=== PATIENT | female | born 1960 | race Caucasian/White ===

== ENCOUNTER 2020-07-17 18:30 | Inpatient (IN) | payer OTHER, SELFPAY ==
[2020-07-17 19:40] VITALS: BP 140/68; PULSE 70; RESP 16; TEMP 36.7; O2SAT 99; BMI 31.5
--- NOTE | 2020-07-17 20:02 | PC.NURSE ---
ophthalmic medical technologist at bedside obtaining EKG. PA at bedside with emr implementation specialist for primary exam.
--- NOTE | 2020-07-17 20:22 | ECG_ITS ---
Test Reason : SOB Blood Pressure : / mmHG Vent. Rate : 074 BPM Atrial Rate : 074 BPM P-R Int : 154 ms QRS Dur : 084 ms QT Int : 438 ms P-R-T Axes : 060 -31 015 degrees QTc Int : 486 ms Normal sinus rhythm Left axis deviation Nonspecific T wave abnormality Abnormal ECG No previous ECGs available Referred By: Antony Sellers Electronically Signed By:ARACELI MICHELE MD
[2020-07-17 20:30] VITALS: BP 130/73; PULSE 63
[2020-07-17 20:31] VITALS: BP 140/68; PULSE 61
[2020-07-17 20:33] VITALS: BP 156/80; PULSE 71
--- NOTE | 2020-07-17 20:48 | PC.NURSE ---
IV established, labs obtained and sent. Orthos completed, pt remained asymptomatic throughout. Pt ambulating to the bathroom with a juan/steady gait. Pt requiring no assistance with ambulation. Awaiting lab results, continue to monitor.
[2020-07-17 20:54] LABS: MANUAL DIFF FLAG NO
[2020-07-17 20:57] LABS: Basophils Absolute Auto 0.1 X10*3/uL (0.0-0.2); Basophils Percent Auto 0.6 % (0-2); Eosinophils Absolute Auto 0.2 X10*3/uL (0.0-0.4); Eosinophils Percent Auto 1.9 % (0-4); Hematocrit 45.9 % (37-47); Hemoglobin 14.3 g/dl (12.0-16.0); Imm Gran Abs Auto 0.04 X10*3/uL (0.00-0.03); Imm Gran Pct Auto 0.4 % (0.0-0.4); Lymphocytes Absolute Auto 1.8 X10*3/uL (1.2-4.9); Lymphocytes Percent Auto 19.4 % (20-40); Mean Corpuscular HGB Conc 31.2 g/dl (31.0-35.0); Mean Corpuscular Volume 86.6 fL (80-98); Mean Platelet Volume 9.9 fL (9.4-12.3); Monocytes Absolute Auto 0.6 X10*3/uL (0.1-1.2); Monocytes Percent Auto 6.6 % (2-11); Neutrophils Absolute Auto 6.7 X10*3/uL (2.0-8.3); Neutrophils Percent Auto 71.1 % (45-73); Platelet Count 321 X10*3/uL (160-400); Red Cell Distribution Width 13.4 % (11.0-16.0); White Blood Count 9.4 X10*3/uL (4.8-10.8)
[2020-07-17 21:04] LABS: INTERNATIONAL NORM RATIO 0.9 (0.9-1.1)
[2020-07-17 21:07] LABS: Partial Thromboplastin Time 36.1 SEC (24.1-38.0)
[2020-07-17 21:23] LABS: Alanine Aminotransferase 16 U/L (0-31); Albumin Level 4.3 g/dL (3.5-5.0); Alkaline Phosphatase 107 U/L (39-117); Anion Gap 12 (12-20); Aspartate Amino Transferase 23 U/L (5-31); Bilirubin Total 0.3 mg/dL (0.0-1.0); Blood Urea Nitrogen 12 mg/dL (9-16); Calcium 9.2 mg/dL (8.4-10.2); Carbon Dioxide 29 mmol/L (22-29); Chloride 104 mmol/L (96-108); Creatinine Clr Calc Pharmacy 73.3; Estimated Glomerular Filt Rate > 60; Glucose Random 156 mg/dL (60-115); Potassium 4.2 mmol/l (3.3-5.1); Sodium 141 mmol/L (135-145)
[2020-07-17 21:28] LABS: B Type Natriuretic Peptide 37 pg/mL (<100); Troponin-I High Sensitivity < 3.5 ng/L (<3.5-17.0)
[2020-07-17 22:19] VITALS: BP 109/61; PULSE 67; RESP 16; O2SAT 96
[2020-07-17 22:42] LABS: D Dimer 214 NG/ML
--- NOTE | 2020-07-17 22:54 | XR_ITS ---
EXAMINATION: XR CHEST CLINICAL INFORMATION: Shortness of breath. COMPARISON: None TECHNIQUE: Frontal portable view of the chest was obtained. 10:44 PM FINDINGS: No significant abnormality is noted involving the heart, lungs, mediastinum, bony thorax or soft tissues. XR/XR chest 1V IMPRESSION: Unremarkable examination.
--- NOTE | 2020-07-17 23:05 | PC.NURSE ---
Awaiting cardiac cath tech to complete Med Rec.
--- NOTE | 2020-07-17 23:50 | PC.NURSE ---
Med Rec completed at bedside with payloader machine operator.
[2020-07-18] VITALS (15 sets, daily range): BP systolic 90–136; BP diastolic 55–79; PULSE 56–70; RESP 14–19; TEMP 36.1–36.6; O2SAT 97–99
--- NOTE | 2020-07-18 00:39 | P.HPHOSP_ITS ---
History of Present Illness Date of Service: 07/17/20 Chief Complaint: near syncope patient is Maori-speaking, history is obtained with the help of field underwriter. this is a 52-year-old female with past medical history of hypertension, coronary artery disease status post stent in 2014 who presents to the hospital with complaints of near syncope. patient reports that she was driving when all of a sudden she started feeling like she is about to pass out. 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 She reports no loss of consciousness, she denies history of panic attacks although she reports history of anxiety, she denies palpitations, she denies any change in vision, no headache, she had multiple nausea with no vomiting, no previous similar episode. she reports that prior to leaving the house, she had neck stiffness which she attributed to muscle issues, she took a hot bath, took an Advil, and felt better And therefore left the house to deliver her [employer] packages. she reports weakness all over the body, with no specific numbness tingling or specific limb weakness anywhere On arrival to the ED hemodynamically stable with no significant abnormal vitals labs unremarkable with a negative high sensitivity troponin EKG shows ST T-wave changes suggestive of old infarct but otherwise no acute changes chest x-ray neck past medical history: Hypertension, coronary artery disease status post AL and stent placement in 2015 surgical history: Denies Family history: Significant for cancer in both mom and dad Social history: Comes from home, lives with her family, denies tobacco alcohol or illicit drugs Review of Systems Review of Systems: Yes all other systems are reviewed and are negative [facility] Medical History Arthritis Hypertension Myocardial infarction Social History Alcohol intake: never Smoking Status: Never smoker Use of substances other than those prescribed or required for medical reasons: No Advance Directives: No Advance Directives Information Provided: Yes Meds Allergies Allergy/AdvReac Type Severity Reaction Status Date / Time No Known Allergies Allergy Verified 07/17/20 20:22 Home Medications Medication Instructions Recorded Confirmed Type amlodipine 5 mg PO DAILY 07/17/20 07/17/20 History aspirin 81 mg PO DAILY 07/17/20 07/17/20 History atorvastatin 10 mg PO DAILY 07/17/20 07/17/20 History carvedilol 25 mg PO BID 07/17/20 07/17/20 History lisinopril 10 mg PO BID 07/17/20 07/17/20 History Physical Exam Vital Signs and Narrative: Vital Signs: Last Vital Signs Temp 98.1 F 07/17/20 19:40 Pulse 67 07/17/20 22:19 Resp 16 07/17/20 22:19 BP 109/61 07/17/20 22:19 Pulse Ox 96 07/17/20 22:19 Body Mass Index 31.5 Const: General: cooperative and no acute distress Orientation/consciousness : patient oriented x3 Eyes: General: appearance normal, both eyes and all related structures Pupils: Equal, round and reactive pupils present Resp: Effort & Inspection: normal respiratory effort and able to speak in complete sentences Auscultation: clear to auscultation bilaterally Cardio: Rate: regular rate Rhythm: regular rhythm GI: Palpation (GI): Soft to palpation Auscultation: normal bowel sounds Skin: General skin exam: no rashes or lesions noted Neuro: Other: strength 5/5 in all extremities, cranial nerves 2-12 within normal. No focal deficits General: patient oriented x3 Cranial nerves: Yes Equal, round and reactive pupils present Cognition (Neuro): normal cognition Extrem: General: Yes normal to inspection and Yes no pedal edema Results Labs CBC and Chem 7: 07/17/20 20:46 07/17/20 20:46 Labs: Laboratory Results - last 24 hr 07/17/20 07/17/20 07/17/20 20:46 20:46 20:46 MCV 86.6 MCH 27.0 MCHC 31.2 RDW 13.4 Plt Count 321 MPV 9.9 Immature Gran % (Auto) 0.4 Neut % (Auto) 71.1 Lymph % (Auto) 19.4 L [place] % (Auto) 6.6 Eos % (Auto) 1.9 Baso % (Auto) 0.6 Lymph # (Auto) 1.8 [place] # (Auto) 0.6 Eos # (Auto) 0.2 Baso # (Auto) 0.1 Abs Immat Gran (auto) 0.04 H Absolute Neuts (auto) 6.7 Absolute Nucleated RBC 0.000 Nucleated RBC % (auto) 0.0 PT 11.0 INR 0.9 APTT 36.1 D-Dimer 214 Anion Gap Estim Creat Clear Calc Estimated GFR Random Glucose Calcium Total Bilirubin AST ALT Alkaline Phosphatase Troponin I High Sens < 3.5 B-Natriuretic Peptide 37 Total Protein Albumin 07/17/20 20:46 MCV MCH MCHC RDW Plt Count MPV Immature Gran % (Auto) Neut % (Auto) Lymph % (Auto) [place] % (Auto) Eos % (Auto) Baso % (Auto) Lymph # (Auto) [place] # (Auto) Eos # (Auto) Baso # (Auto) Abs Immat Gran (auto) Absolute Neuts (auto) Absolute Nucleated RBC Nucleated RBC % (auto) PT INR APTT D-Dimer Anion Gap 12 Estim Creat Clear Calc 73.3 Estimated GFR > 60 Random Glucose 156 H Calcium 9.2 Total Bilirubin 0.3 AST 23 ALT 16 Alkaline Phosphatase 107 Troponin I High Sens B-Natriuretic Peptide Total Protein 8.0 Albumin 4.3 Imaging Radiologist's Impressions: Impressions Chest X-Ray 07/17/20 22:54 IMPRESSION: Unremarkable examination. Assessment and Plan (1) Near syncope: Status: Acute (2) Myocardial infarction: Status: Acute (3) Hypertension: Status: Acute this is a 60-year-old female with past medical history of CAD, who presents to the hospital with complaints of near-syncope. # Near-syncope - panic attack versus cardiogenic/arrhythmia given history of heart disease - no associated loss of consciousness, EKG normal, troponin normal, no abnormal electrolytes plan: - Will obtain echocardiogram - admit to the telemetry for cardiac monitoring of rhythm - may need a loop recorder on discharge # history of AL - chest tightness associated with the above episode - high sensitivity troponin completely negative, EKG negative for any acute ACS Plan: - Admit to telemetry, and monitor for new symptoms - continue aspirin and carvedilol # hypertension - stable - continue amlodipine, lisinopril, carvedilol DVT prophylaxis: Lovenox
--- NOTE | 2020-07-18 00:55 | PC.NURSE ---
Covid swab obtained and sent. VSS. Pt awaiting room assignment. Continue to monitor.
--- NOTE | 2020-07-18 01:04 | ED_ITS ---
HPI - Syncope General Chief Complaint: Weakness Stated Complaint: shortness of breath, onset Time Seen by Provider: 07/17/20 19:36 Source: patient Mode of arrival: ambulatory Limitations: no limitations History of Present Illness HPI narrative: patient presents to the ED for near syncopal episode with shortness of breath. Patient states she was in the passenger side of her daughter's car all of a sudden she felt shortness of breath and felt like she was about to pass out. patient states she did not lose consciousness but continued for shortness of breath. Denies any chest pain, swelling of lower extremities, calf pain, recent long travel, recent surgery, any history of blood clots. Patient states she was concerned congested history of 2 heart attacks with catheterization. Related Data Home Medications Medication Instructions Recorded Confirmed amlodipine 5 mg PO DAILY 07/17/20 07/17/20 aspirin 81 mg PO DAILY 07/17/20 07/17/20 atorvastatin 10 mg PO DAILY 07/17/20 07/17/20 carvedilol 25 mg PO BID 07/17/20 07/17/20 lisinopril 10 mg PO BID 07/17/20 07/17/20 Allergies Allergy/AdvReac Type Severity Reaction Status Date / Time No Known Allergies Allergy Verified 07/17/20 20:22 Review of Systems Review of Systems: Yes all other systems are reviewed and are negative Eyes: Eyes: Reports as per HPI and Reports no additional eye complaints ENT: Reports system reviewed and no additional complaints, except as documented and Reports as per HPI Cardiovascular: Cardiovascular: Reports as per HPI, Reports no additional cardiovascular complaints, Denies chest pain, Denies chest pain at rest, Reports dyspnea and Reports orthopnea Comments: Near syncope Respiratory: Respiratory: Reports as per HPI, Reports no additional respiratory complaints and Reports dyspnea Gastrointestinal: Gastrointestinal: Reports as per HPI and Reports no ad ditional gastrointestinal complaints Musculoskeletal: Musculoskeletal: Reports no additional musculoskeletal complaints and Reports as per HPI Neurologic: Reports system reviewed and no additional complaints, except as documented and Reports as per HPI Psychiatric: Psychiatric: Reports no additional psychiatric complaints and Re ports as per HPI [facility] Past Medical History Medical History (Updated 07/18/20 @ 01:14 by SIMI Abernathy) Arthritis Hypertension Myocardial infarction Social History Social History Alcohol intake: never Smoking Status: Never smoker Use of substances other than those prescribed or required for medical reasons: No Advance Directives: No Advance Directives Information Provided: Yes Physical Exam Vital Signs: Vital Signs: Last Vital Signs Temp 98.1 F 07/17/20 19:40 Pulse 65 07/18/20 01:49 Resp 14 07/18/20 01:49 BP 121/71 07/18/20 00:55 Pulse Ox 97 07/18/20 01:49 Body Mass Index 31.5 Const: General: cooperative, healthy appearing, comfortable, no acute distress, well developed and alert Orientation/consciousness: oriented to time and patient oriented x3 HENMT: Head: Yes normal to inspection and Yes No palpable skull fracture present Eyes: General: appearance normal, both eyes and all related structures Visual Beal: normal visual beal by confrontation Neck: Neck: Yes normal visual inspection and Yes full ROM Chest: Chest palpation & inspection: normal inspection of the chest, normal palpation of entire chest wall and no localized rib tenderness Resp: Effort & Inspection: normal respiratory effort and able to speak in complete sentences Auscultation: clear to auscultation bilaterally Cardio: Jugular venous distension: no JVD Heart sounds: S1 normal heart sound present and S2 normal heart sound present GI: Inspection: Yes normal to inspection and No abdominal wall ecchymosis Palpation (GI): Soft to palpation, not firm, nontender, no guarding and not rigid : General: No CVA tenderness and Yes no CVA tenderness Back/Spine/Pelvis: Back: no CVA tenderness, No CVA tenderness and No back tenderness Skin: General skin exam: no rashes or lesions noted Neuro: Other: Negative any facial droop. Cranial nerves intact. Motor, neuro exam, and vascular exam of all extremities are intact. Strength is equal in all extremities. Negative for any focal deficit. General: oriented to time, patient oriented x3, gait normal and CN's II-XI intact bilaterally Cranial nerves: Yes CN's II-XII intact bilaterally Extrem: Other: lower extremity negative for any swelling or pitting edema. General: Yes normal to inspection and Yes full ROM Psych: Appearance: grossly normal and well kempt Course Course Course Narrative: Patient will have cardiac evaluation due to history of MN. Patient will also have D-dimer to rule out PE due to patient stating near syncopal episode with shortness of breath. Patient also have EKG and chest x- ray. Reevaluation(s) Reevaluation #1: Patient's troponin, and D-dimer were negative. patient's Wells score 0. due to patient's extensive past medical history patient will be admitted to observation for near syncope. Patient presently not any distress. Patient denies any COVID symptoms. Case Accepted by Dr. Peñaloza Time: 01:12 MDM - Syncope MDM Narrative Medical decision making narrative: near syncope Lab Data Result diagrams: 07/17/20 20:46 07/17/20 20:46 Labs: Lab Results 07/17/20 07/17/20 07/17/20 Range/Units 20:46 20:46 20:46 WBC 9.4 (4.8-10.8) X10*3/uL RBC 5.30 (4.20-5.50) X10*6/uL Hgb 14.3 (12.0-16.0) g/dl Hct 45.9 (37-47) % MCV 86.6 (80-98) fL MCH 27.0 (27.0-33.0) pg MCHC 31.2 (31.0-35.0) g/dl RDW 13.4 (11.0-16.0) % Plt Count 321 (160-400) X10*3/uL MPV 9.9 (9.4-12.3) fL Immature Gran % (Auto) 0.4 (0.0-0.4) % Neut % (Auto) 71.1 (45-73) % Lymph % (Auto) 19.4 L (20-40) % [place] % (Auto) 6.6 (2-11) % Eos % (Auto) 1.9 (0-4) % Baso % (Auto) 0.6 (0-2) % Lymph # (Auto) 1.8 (1.2-4.9) X10*3/uL [place] # (Auto) 0.6 (0.1-1.2) X10*3/uL Eos # (Auto) 0.2 (0.0-0.4) X10*3/uL Baso # (Auto) 0.1 (0.0-0.2) X10*3/uL Abs Immat Gran (auto) 0.04 H (0.00-0.03) X10*3/uL Absolute Neuts (auto) 6.7 (2.0-8.3) X10*3/uL Absolute Nucleated RBC 0.000 (0.0-0.012) X10*3/uL Nucleated RBC % (auto) 0.0 (0.0-0.2) /100WBC PT 11.0 (10.8-13.0) SEC INR 0.9 (0.9-1.1) APTT 36.1 (24.1-38.0) SEC D-Dimer 214 NG/ML Sodium (135-145) mmol/L Potassium (3.3-5.1) mmol/l Chloride (96-108) mmol/L Carbon Dioxide (22-29) mmol/L Anion Gap (12-20) BUN (9-16) mg/dL Creatinine (0.5-1.4) mg/dL Estim Creat Clear Calc Estimated GFR Random Glucose (60-115) mg/dL Calcium (8.4-10.2) mg/dL Total Bilirubin (0.0-1.0) mg/dL AST (5-31) U/L ALT (0-31) U/L Alkaline Phosphatase (39-117) U/L Troponin I High Sens < 3.5 (<3.5-17.0) ng/L B-Natriuretic Peptide 37 (<100) pg/mL Total Protein (6.5-8.0) g/dL Albumin (3.5-5.0) g/dL 07/17/20 Range/Units 20:46 WBC (4.8-10.8) X10*3/uL RBC (4.20-5.50) X10*6/uL Hgb (12.0-16.0) g/dl Hct (37-47) % MCV (80-98) fL MCH (27.0-33.0) pg MCHC (31.0-35.0) g/dl RDW (11.0-16.0) % Plt Count (160-400) X10*3/uL MPV (9.4-12.3) fL Immature Gran % (Auto) (0.0-0.4) % Neut % (Auto) (45-73) % Lymph % (Auto) (20-40) % [place] % (Auto) (2-11) % Eos % (Auto) (0-4) % Baso % (Auto) (0-2) % Lymph # (Auto) (1.2-4.9) X10*3/uL [place] # (Auto) (0.1-1.2) X10*3/uL Eos # (Auto) (0.0-0.4) X10*3/uL Baso # (Auto) (0.0-0.2) X10*3/uL Abs Immat Gran (auto) (0.00-0.03) X10*3/uL Absolute Neuts (auto) (2.0-8.3) X10*3/uL Absolute Nucleated RBC (0.0-0.012) X10*3/uL Nucleated RBC % (auto) (0.0-0.2) /100WBC PT (10.8-13.0) SEC INR (0.9-1.1) APTT (24.1-38.0) SEC D-Dimer NG/ML Sodium 141 (135-145) mmol/L Potassium 4.2 (3.3-5.1) mmol/l Chloride 104 (96-108) mmol/L Carbon Dioxide 29 (22-29) mmol/L Anion Gap 12 (12-20) BUN 12 (9-16) mg/dL Creatinine 0.81 (0.5-1.4) mg/dL Estim Creat Clear Calc 73.3 Estimated GFR > 60 Random Glucose 156 H (60-115) mg/dL Calcium 9.2 (8.4-10.2) mg/dL Total Bilirubin 0.3 (0.0-1.0) mg/dL AST 23 (5-31) U/L ALT 16 (0-31) U/L Alkaline Phosphatase 107 (39-117) U/L Troponin I High Sens (<3.5-17.0) ng/L B-Natriuretic Peptide (<100) pg/mL Total Protein 8.0 (6.5-8.0) g/dL Albumin 4.3 (3.5-5.0) g/dL ECG Data Interpretation: normal sinus rhythm. Ventricular rate 74. Pr interval 154. negative STEMI. Discharge Plan Discharge Clinical Impression: Near syncope Patient Disposition: Admitted As Inpatient Interventions: Admission Worksheet (ED) Last Done: 07/18/20 00:49 Print Language: Slovak
--- NOTE | 2020-07-18 05:09 | PC.NURSE ---
Covid swab previously obtained earlier in the night unable to be processed as order from hospitalist was not an in house swab. This RN placing order to in house Covid per lab and travel sales consultant. Covid swab again obtained and sent for analysis. Pt resting in bed in [facility].
[2020-07-18 06:07] LABS: SARS COV2 PCR INHOUSE NEGATIVE (Negative)
--- NOTE | 2020-07-18 09:55 | MHC.CM.PN ---
GLADYS 07/18/20 Female DX Near Syncope. She lives with family. She is independent all functional mobility. DP home no services family transport.
[2020-07-18] MEDS: Enoxaparin Sodium 40 MG/0.4 ML SYRINGE SUBCUT (10:23)
[2020-07-18] MEDS: carvediloL 25 MG TABLET PO ×2 (10:24→20:34)
[2020-07-18] MEDS: Acetaminophen 325 MG TABLET 650 MG PO ×2 (10:24→20:37)
[2020-07-18] MEDS: amLODIPine Besylate 5 MG TABLET PO (10:24)
[2020-07-18] MEDS: lisinopriL 10 MG TABLET PO ×2 (10:25→20:35)
[2020-07-18] MEDS: 0.9 % Sodium Chloride Flush 3 ML SYRINGE IVFLUSH ×2 (10:25→17:18)
[2020-07-18] MEDS: Atorvastatin Calcium 10 MG TABLET PO (10:34)
[2020-07-18 10:39] LABS: MANUAL DIFF FLAG NO
[2020-07-18 10:48] LABS: Basophils Percent Auto 0.4 % (0-2); Eosinophils Absolute Auto 0.1 X10*3/uL (0.0-0.4); Eosinophils Percent Auto 2.2 % (0-4); Hematocrit 43.7 % (37-47); Hemoglobin 13.7 g/dl (12.0-16.0); Imm Gran Abs Auto 0.02 X10*3/uL (0.00-0.03); Imm Gran Pct Auto 0.4 % (0.0-0.4); Lymphocytes Absolute Auto 1.3 X10*3/uL (1.2-4.9); Lymphocytes Percent Auto 22.9 % (20-40); Mean Corpuscular HGB Conc 31.4 g/dl (31.0-35.0); Mean Corpuscular Hemoglobin 26.9 pg (27.0-33.0); Mean Corpuscular Volume 85.9 fL (80-98); Mean Platelet Volume 10.1 fL (9.4-12.3); Monocytes Absolute Auto 0.4 X10*3/uL (0.1-1.2); Monocytes Percent Auto 7.3 % (2-11); Neutrophils Absolute Auto 3.7 X10*3/uL (2.0-8.3); Neutrophils Percent Auto 66.8 % (45-73); Platelet Count 284 X10*3/uL (160-400); Red Blood Count 5.09 X10*6/uL (4.20-5.50); Red Cell Distribution Width 13.4 % (11.0-16.0); White Blood Count 5.6 X10*3/uL (4.8-10.8)
--- NOTE | 2020-07-18 11:00 | CA_ITS ---
Transthoracic Echocardiogram Patient (Last, First, Middle): Alba Escudero, Gender: Female Date of : 1960 Age: 60 Procedure Date: 07/18/2020 Procedure Type: Transthoracic Echocardiogram Location: [facility] [place] Height: 157.48 cm Weight: 78.02 kg BSA: 1.79 m2 Heart Rate: bpm BP: 90 / 55 mmHg Internist: Referring MD: Ronal Peñaloza MD Director Dental Services: Aldo Barrera MD Symptoms: near sycope Study Quality: Fair ECG Rhythm: Sinus Conclusions: - 1. Moderate to severe LV systolic dysfunction with LVEF of 30 35% with wall motion abnormality in the LAD territory with grade 1 diastolic dysfunction 2. Normal cardiac valvular Doppler 3. Normal RV systolic pressure 4. No pericardial effusion Findings Procedure Information Contrast agent, definity, is being given per protocol without apparent complications. Left Ventricle Normal left ventricular cavity size. There is normal left ventricular wall thickness. The left ventricular systolic function is moderate to severely decreased. The visually estimated ejection fraction is between 30-35%. Spectral Doppler is indicative of an impaired relaxation filling pattern. E/E prime ratio is <8, consistent with normal filling pressures. Wall Motion Rest Echo Findings The inferoseptal wall, the apical inferior, mid anterior, mid inferior, and basal anteroseptal segments are hypokinetic. The apical anterior, basal inferior, apical septum, and mid anteroseptal segments are akinetic. The apex segment is dyskinetic. All other scored wall segments showed normal motion. Right Ventricle Normal right ventricular cavity size and systolic function. Atria The left atrium is normal in size. Interatrial shunt cannot be excluded. The right atrium is normal in size. Aortic Valve Normal aortic valve structure and function. There is no aortic valve stenosis. There is no aortic valve regurgitation. Mitral Valve Normal mitral valve structure and function. There is trace mitral valve regurgitation. There is no mitral valve stenosis. Pulmonic Valve The pulmonic valve was not well visualized. Tricuspid Valve Likely normal tricuspid valve structure and function. There is no tricuspid valve regurgitation. The right ventricular systolic pressure is normal. The right ventricular systolic pressure is 21 mmHg. There is no evidence of pulmonary hypertension. Great Vessels All visible segments of the aorta are normal in size. The pulmonary artery was not well visualized. Venous The inferior vena cava is normal in size and collapses greater than 50% with inspiration. Pericardium/Pleural There is no evidence of pericardial effusion. Prior Study Comparison No prior study available for comparison. Measurements 2D Linear Measurements IVSd: 0.88 0.6-0.9/0.6-1.0 cm LVIDd: 5.26 3.9-5.3/4.2-5.9 cm LVIDd Index: 2.94 2.4-3.2/2.2-3.1 cm/m2 LVIDs: 3.94 2.0-3.6 cm LVPWd: 0.77 0.7-1.1 cm Ao Root: 3.10 2.1-3.5 cm LA Diam: 3.20 2.7-3.8/3.0-4.0 cm LAIDs Index: 1.79 1.5-2.3 cm/m2 LV Mass: 191.93 67-162/88-224 g LV Mass Index: 107.23 43-95/49-115 g/m2 LVOT Diam: 2.00 3.0+(-)1.3 cm 2D Systolic Function EF 4C: 34.90 >55% EF 2C: 25.50 >55% EF BiP: 32.50 >55% Mitral Valve MV Pk E: 0.55 MV PK A: 0.72 MV Decel Time: 194.00 E/A: 0.80 E'Lateral: 7.29 E'Medial: 5.77 E/E' Med: 9.40 E/E' Lat: 7.50 PHT: 57.00 MVA PHT: 3.86 Decel Henderson: 2.81 Aortic Valve AoV Pk Alireza: 1.28 AoV Mn Alireza: 0.84 AoV VTI: 0.35 AoV Pk Grad: 7.00 Aov Mn Grad: 3.00 RASHAD Cont.VTI: 2.11 LVOT LVOT Pk Alireza: 1.10 LVOT Mn Alireza: 0.68 LVOT VTI: 0.23 LVOT Pk Grad: 5.00 LVOT Mn Grad: 2.00 LVOT Diam: 2.00 LVOT Area: 3.14 Diastolic Function MV Pk E: 0.55 MV Pk A: 0.72 E/A: 0.80 E'Medial: 5.77 E/E' Med: 9.40 E' Laterial: 7.29 E/E' Lat: 7.50 Tricuspid Valve TR Pk Alireza: 2.10 TR Pk Grad: 18.00 RA Press: 3.00 RVSP: 21.00 Great Vessels Aorta Ao Root-2D: 3.10 2.0-3.7 cm Ao Asc: 3.00 2.1-3.4 cm Pulmonary Valve PV Pk Alireza: 0.86 Peak PV Grad: 3.00 Updated in Other Vendor System with Status of Final Aldo Barrera MD electronically signed on 07/18/2020 4:29:48 PM with status of Final
[2020-07-18 11:15] LABS: Anion Gap 10 (12-20); Blood Urea Nitrogen 10 mg/dL (9-16); Calcium 8.7 mg/dL (8.4-10.2); Carbon Dioxide 26 mmol/L (22-29); Chloride 107 mmol/L (96-108); Creatinine Clr Calc Pharmacy 104.1; Estimated Glomerular Filt Rate > 60; Glucose Random 91 mg/dL (60-115); Potassium 3.9 mmol/l (3.3-5.1); Sodium 139 mmol/L (135-145)
--- NOTE | 2020-07-18 16:34 | HO.PM.IMPN ---
Subjective Subjective Date of Service: 07/18/20 Interval History: History in Qatari from patient. No further episodes of dizziness which she clarifies was lightheadedness and not at all vertigo. Denies chest pain or palpitations or dyspnea. TTE showing LVEF 30-35% with RWMA in LAD territory. Physical Exam Vital Signs: Vital Signs: Last Vital Signs Temp 97.9 F 07/18/20 14:46 Pulse 59 07/18/20 14:46 Resp 18 07/18/20 14:46 BP 103/60 07/18/20 14:46 Pulse Ox 98 07/18/20 14:46 Body Mass Index 31.5 Const: General: no acute distress and well developed Neck: Neck: Yes normal visual inspection Chest: Chest palpation & inspection: normal inspection of the chest Resp: Effort & Inspection: normal respiratory effort Auscultation: clear to auscultation bilaterally Cardio: Rate: regular rate Rhythm: regular rhythm GI: Palpation (GI): Soft to palpation and nontender Neuro: General: no focal motor deficits Extrem: General: Yes normal to inspection and Yes no clubbing, cyanosis or edema Objective Data Current Medications Generic Name Dose Route Start Last Admin Trade Name Freq PRN Reason Stop Dose Admin Acetaminophen 650 mg 07/18/20 09:43 07/18/20 10:24 Acetaminophen 325 Mg Tablet PO 650 mg Q6H PRN Administration Pain, Mild (Pain Scale 1-3) Amlodipine Besylate 5 mg 07/18/20 09:43 07/18/20 10:24 Amlodipine Besylate 5 Mg Tablet PO 5 mg DAILY FREDY Administration Protocol Aspirin 81 mg 07/19/20 09:00 07/18/20 10:34 Aspirin 81 Mg Tab.Chew PO 81 mg DAILY FREDY Administration Atorvastatin Calcium 10 mg 07/19/20 09:00 07/18/20 10:34 Atorvastatin Calcium 10 Mg Tablet PO 10 mg DAILY FREDY Administration Carvedilol 25 mg 07/18/20 09:43 07/18/20 10:24 Carvedilol 25 Mg Tablet PO 25 mg BID FREDY Administration Protocol Enoxaparin Sodium 40 mg 07/18/20 10:00 07/18/20 10:23 Enoxaparin Sodium 40 Mg/0.4 Ml Syringe SUBCUT 40 mg Q24H FREDY Administration Lisinopril 10 mg 07/18/20 09:43 11/09/20 10:25 Lisinopril 10 Mg Tablet PO 10 mg BID [facility] Administration Protocol Ondansetron HCl 4 mg 07/18/20 09:43 Ondansetron Hcl 4 Mg/2 Ml Vial IVPUSH Q8H PRN Nausea and Vomiting Sodium Chloride 3 ml 07/18/20 09:43 07/18/20 10:25 0.9 % Sodium Chloride Flush 3 Ml Syringe IVFLUSH 3 ml QSHIFT [facility] Administration Labs CBC & Chem 7: 07/18/20 10:05 07/18/20 10:05 Labs: Laboratory Results - last 24 hr 07/17/20 07/17/20 07/17/20 20:46 20:46 20:46 WBC 9.4 RBC 5.30 Hgb 14.3 Hct 45.9 MCV 86.6 MCH 27.0 MCHC 31.2 RDW 13.4 Plt Count 321 MPV 9.9 Immature Gran % (Auto) 0.4 Neut % (Auto) 71.1 Lymph % (Auto) 19.4 L [place] % (Auto) 6.6 Eos % (Auto) 1.9 Baso % (Auto) 0.6 Lymph # (Auto) 1.8 [place] # (Auto) 0.6 Eos # (Auto) 0.2 Baso # (Auto) 0.1 Abs Immat Gran (auto) 0.04 H Absolute Neuts (auto) 6.7 Absolute Nucleated RBC 0.000 Nucleated RBC % (auto) 0.0 PT 11.0 INR 0.9 APTT 36.1 D-Dimer 214 Sodium Potassium Chloride Carbon Dioxide Anion Gap BUN Creatinine Estim Creat Clear Calc Estimated GFR Random Glucose Calcium Total Bilirubin AST ALT Alkaline Phosphatase Troponin I High Sens < 3.5 B-Natriuretic Peptide 37 Total Protein Albumin Coronavirus (PCR) COVID-19 PCR COVID-19 (HORTENCIA) COVID-19 Clin Com 07/17/20 07/18/20 07/18/20 20:46 00:55 00:55 WBC RBC Hgb Hct MCV MCH MCHC RDW Plt Count MPV Immature Gran % (Auto) Neut % (Auto) Lymph % (Auto) [place] % (Auto) Eos % (Auto) Baso % (Auto) Lymph # (Auto) [place] # (Auto) Eos # (Auto) Baso # (Auto) Abs Immat Gran (auto) Absolute Neuts (auto) Absolute Nucleated RBC Nucleated RBC % (auto) PT INR APTT D-Dimer Sodium 141 Potassium 4.2 Chloride 104 Carbon Dioxide 29 Anion Gap 12 BUN 12 Creatinine 0.81 Estim Creat Clear Calc 73.3 Estimated GFR > 60 Random Glucose 156 H Calcium 9.2 Total Bilirubin 0.3 AST 23 ALT 16 Alkaline Phosphatase 107 Troponin I High Sens B-Natriuretic Peptide Total Protein 8.0 Albumin 4.3 Coronavirus (PCR) COVID-19 PCR Cancelled COVID-19 (HORTENCIA) Cancelled COVID-19 Clin Com Cancelled 07/18/20 07/18/20 07/18/20 05:02 10:05 10:05 WBC 5.6 RBC 5.09 Hgb 13.7 Hct 43.7 MCV 85.9 MCH 26.9 L MCHC 31.4 RDW 13.4 Plt Count 284 MPV 10.1 Immature Gran % (Auto) 0.4 Neut % (Auto) 66.8 Lymph % (Auto) 22.9 [place] % (Auto) 7.3 Eos % (Auto) 2.2 Baso % (Auto) 0.4 Lymph # (Auto) 1.3 [place] # (Auto) 0.4 Eos # (Auto) 0.1 Baso # (Auto) 0.0 Abs Immat Gran (auto) 0.02 Absolute Neuts (auto) 3.7 Absolute Nucleated RBC 0.000 Nucleated RBC % (auto) 0.0 PT INR APTT D-Dimer Sodium 139 Potassium 3.9 Chloride 107 Carbon Dioxide 26 Anion Gap 10 L BUN 10 Creatinine 0.57 Estim Creat Clear Calc 104.1 Estimated GFR > 60 Random Glucose 91 D Calcium 8.7 Total Bilirubin AST ALT Alkaline Phosphatase Troponin I High Sens B-Natriuretic Peptide Total Protein Albumin Coronavirus (PCR) NEGATIVE COVID-19 PCR COVID-19 (HORTENCIA) COVID-19 Clin Com Assessment and Plan (1) Near syncope: Status: Acute Assessment and Plan: hospital d#2 60yo F with PMHx chronic chest pain, possibly vasospastic angina, admitted for near-syncope, found to have ischemic CM/HFrEF # chronic HFrEF/ischemic CM - new dx. Cardiology consultation for ischemic workup - reviewed [facility] note from November 2018: Echo 2013 showed LVEF 55-60%, normal thickness and size, w/ normal RV fx, no hemodynamically significant valvular dx. Stress test in 2014, achieving a METS of 7 over 6 minutes, w/ no chest pain or abnormal ECG findings. Cardiac cath 2014 showed normal vessels - continue ASA, carvedilol, lisinopril; intensify statin # HTN - continue amlodipine, carvedilol, lisinopril # VTE ppx - LMWH
[2020-07-19] VITALS (7 sets, daily range): BP systolic 90–153; BP diastolic 59–85; PULSE 56–71; RESP 16–20; TEMP 36.1–37; O2SAT 98–100; BMI 31.5
[2020-07-19] MEDS: 0.9 % Sodium Chloride Flush 3 ML SYRINGE IVFLUSH ×2 (00:04→09:30)
[2020-07-19] MEDS: Atorvastatin Calcium 40 MG TABLET PO (09:29)
[2020-07-19] MEDS: carvediloL 25 MG TABLET PO (09:29)
[2020-07-19] MEDS: Aspirin 81 MG TAB.CHEW PO (09:29)
[2020-07-19] MEDS: lisinopriL 5 MG TABLET PO (09:29)
--- NOTE | 2020-07-19 09:30 | P.CONCA_ITS ---
History of Present Illness History of Present Illness Date of Consult: July 19, 2020 Requesting physician: Karla Abrams Chief complaint: Near syncope Narrative: Thank you for inviting us in the consult of annette Willis 60-year-old woman for symptoms of sudden shortness of breath and feeling weak and lightheaded. History was obtained with help of programmer. She says in 2013 while in [facility] she had a myocardial infarction, from records appears that she had anterior STEMI and had required thrombolysis. No interven tion was performed. Subsequently in 2013 she had moved to [place] and here she had an echocardiogram at [facility] where LV ejection fraction was noted to be 55-60% normal range with no wall motion abnormality. She subsequently in 2014 underwent a cardiac catheterization for recurrent chest pain or abnormal nuclear stress test which had shown no significant obstructive coronary disease but sluggish flow in the medial branch of the LAD. Since then she has not had any repeat echocardiogram. She has chronic atypical chest discomfort. She is currently on carvedilol, lisinopril and Norvasc for management of hypertension. She is also on aspirin therapy. There was suspicio n for coronary vaso spasm as she remembers. She came to the hospital yesterday because while driving she suddenly felt that she was not able to breathe GI asked her daughter to ruled underwent dose of her core and then she suddenly felt like she did not belong and felt like she was going to . She did not have any palpitations. [place] lightheaded. She had no chest discomfort. The symptoms are of very sudden onset and recent origin. She has not had symptoms like this in the past. When she came to the emergency room her hemodynamics were normal. There were no arrhythmias noted. EKG showed poor R-wave progression with Q-waves in anterior leads consistent with infarct pattern. Echocardiogram shows moderate to severe LV systolic dysfunction with LVEF of 30- 35% with LAD territory wall motion abnormality. Her troponins are within normal limits. Her BNP is normal as well. Cardiac telemetry has revealed no significant arrhythmias Review of Systems Constitutional: Constitutional: Denies chills, Denies fatigue, Denies fever(s) and Denies poor appetite Eyes: Eyes: Reports no additional eye complaints ENT: Reports system reviewed and no additional complaints, except as documented Cardiovascular: Cardiovascular: Denies chest pain at rest, Denies chest pain with activity, Denies syncope, Reports lightheadedness, Denies Loss of Consciousness, Denies radiating jaw, neck or arm pain, Denies palpitations and Reports dyspnea Respiratory: Respiratory: Reports dyspnea Gastrointestinal: Gastrointestinal: Reports no additional gastrointestinal complaints Musculoskeletal: Musculoskeletal: Reports no additional musculoskeletal complaints Neurologic: Reports system reviewed and no additional complaints, except as documented, Reports as per HPI and Denies syncope Endocrine: Endocrine: Denies fatigue and Denies palpitations Hematologic/Lymphatic: Hematologic/Lymphatic: Reports no additional hematologic/lymphatic complaints Allergic/Immunologic: Allergic/Immunologic: Reports no additional allergic/immunologic complaints [facility] Past Medical History Medical History Arthritis Hypertension Myocardial infarction Social History Social History Household Members: Family Housing: House Do you presently have visiting nurse or other home services: No Alcohol intake: never Smoking Status: Never smoker Use of substances other than those prescribed or required for medical reasons: No Have you been hit, kicked, punched, or otherwise hurt by someone within the past year? If so, by whom?: No Do you feel safe in your current relationship?: No Is there a partner from a previous relationship who is making you feel unsafe now?: No Are you made to feel afraid or neglected: No Advance Directives: No Advance Directives Information Provided: Yes Do you have thoughts of harming others: None Do you have a plan to hurt others: No Plan Recently lost weight without trying: No service: No Current occupational status: employed Meds Allergies Allergy/AdvReac Type Severity Reaction Status Date / Time No Known Allergies Allergy Verified 07/17/20 20:22 Home Medications Medication Instructions Recorded Confirmed Type amlodipine 5 mg PO DAILY 07/17/20 07/17/20 History aspirin 81 mg PO DAILY 07/17/20 07/17/20 History atorvastatin 10 mg PO DAILY 07/17/20 07/17/20 History carvedilol 25 mg PO BID 07/17/20 07/17/20 History lisinopril 10 mg PO BID 07/17/20 07/17/20 History Physical Exam Vital Signs: Vital Signs: Last Vital Signs Temp 96.9 F 07/19/20 07:46 Pulse 59 07/19/20 07:46 Resp 20 07/19/20 07:46 BP 103/64 07/19/20 07:46 Pulse Ox 100 07/19/20 07:46 Body Mass Index 31.5 Const: General: cooperative, healthy appearing, no acute distress, alert and awake Nutritional Appearance: average body habitus Orientation/consciousness: patient oriented x3 Limitations: no limitations HENMT: Head: Yes normal to inspection, Yes normocephalic and Yes atraumatic Neck: Neck: Yes trachea midline, Yes supple and Yes no JVD Chest: Chest palpation & inspection: normal inspection of the chest Resp: Effort & Inspection: normal respiratory effort Auscultation: clear to auscultation bilaterally Cardio: Jugular venous distension: no JVD Palpation: normal PMI Rate: regular rate Rhythm: regular rhythm Heart sounds: S1 normal heart sound present, S2 normal heart sound present and Other heart sounds present (S4 present) Peripheral pulses: Peripheral pulses 2+ throughout GI: Inspection: Yes normal to inspection Auscultation: normal bowel sounds Skin: General skin exam: no rashes or lesions noted Neuro: General: patient oriented x3 and no focal motor deficits Extrem: General: Yes no clubbing, cyanosis or edema Psych: Appearance: grossly normal Results Labs and Meds Result diagrams: 07/18/20 10:05 07/18/20 10:05 Lab results: Laboratory Results - last 24 hr 07/18/20 07/18/20 10:05 10:05 WBC 5.6 RBC 5.09 Hgb 13.7 Hct 43.7 MCV 85.9 MCH 26.9 L MCHC 31.4 RDW 13.4 Plt Count 284 MPV 10.1 Immature Gran % (Auto) 0.4 Neut % (Auto) 66.8 Lymph % (Auto) 22.9 [place] % (Auto) 7.3 Eos % (Auto) 2.2 Baso % (Auto) 0.4 Lymph # (Auto) 1.3 [place] # (Auto) 0.4 Eos # (Auto) 0.1 Baso # (Auto) 0.0 Abs Immat Gran (auto) 0.02 Absolute Neuts (auto) 3.7 Absolute Nucleated RBC 0.000 Nucleated RBC % (auto) 0.0 Sodium 139 Potassium 3.9 Chloride 107 Carbon Dioxide 26 Anion Gap 10 L BUN 10 Creatinine 0.57 Estim Creat Clear Calc 104.1 Estimated GFR > 60 Random Glucose 91 D Calcium 8.7 Assessment and Plan (1) Near syncope: Status: Acute Patient sudden symptoms of suggestive near syncope although she did not lose any consciousness. There is no overt evidence of cardiac arrhythmias. No evidence of acute coronary syndrome or congestive heart failure. However she has non new systolic dysfunction with regional wall motion abnormality suggestive ischemic cardiomyopathy and LAD territory infarct. She clearly requires further workup from this perspective. Recommend cardiac catheterization to evaluate for coronary anatomy and to see there is LAD occlusion at the prior reported side of sluggish flow. Further treatment based on the finding of cardiac catheterization. She will also need EP consultation. She is currently on appropriate neurohormonal modulation with lisinopril and carvedilol. Blood pressure is well optimized. An overt signs of congestive heart failure. Patient explained the risks benefits alternatives and 2nd opinion to cardiac catheterization with help of programmer. She understands and is agreeable. Arrangements for transfer is have been made. (2) Ischemic cardiomyopathy: Status: Acute Newly detected moderate to severe LV systolic dysfunction with LAD territory wall motion abnormality. Ischemic workup to be pursued. Currently on appropriate therapy with carvedilol and lisinopril. She is not in heart failure at this time.
--- NOTE | 2020-07-19 10:38 | P.DS_ITS ---
DS: Providers Provider Date of admission: 07/17/20 23:59 Primary care physician: Teto Laurent MD Consults: 07/18/20 16:42 Consult to Cardiology Routine Consulting Provider: Aldo Barrera Reason for consultation: Ischemic CM DS: Diagnosis Discharge Diagnosis (1) Near syncope: Status: Acute (2) Ischemic cardiomyopathy: Status: Acute DS: Summary Hospital Course Hospital Course: From history and physical by admitting hospitalist Ronal Peñaloza, 07/17/20: This is a 52-year-old female with past medical history of hypertension, coronary artery disease status post stent in 2014 who presents to the hospital with complaints of near syncope. patient reports that she was driving when all of a sudden she started feeling like she is about to pass out. 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 She reports no loss of consciousness, she denies history of panic attacks although she reports history of anxiety, she denies palpitations, she denies any change in vision, no headache, she had multiple nausea with no vomiting, no previous similar episode. she reports that prior to leaving the house, she had neck stiffness which she attributed to muscle issues, she took a hot bath, took an Advil, and felt better And therefore left the house to deliver her [employer] packages. she reports weakness all over the body, with no specific numbness tingling or specific limb weakness anywhere On arrival to the ED hemodynamically stable with no significant abnormal vitals labs unremarkable with a negative high sensitivity troponin EKG shows ST T-wave changes suggestive of old infarct but otherwise no acute changes The patient was admitted to the [facility]. She had no further near syncopal episodes and no chest pressure or dyspnea. There were no cardiac arrhythmias. There was no evidence of acute coronary syndrome. Echocardiography revealed new regional wall motion abnormalities in the LAD territory with depressed LVEF of 30-35%. She had no signs of decompensated heart failure. Prior cardiac history, as summarized by Dr Barrera: She says in 2013 while in [facility] she had a myocardial infarction, from records appears that she had anterior STEMI and had required thrombolysis. No intervention was performed. Subsequently in 2013 she had moved to [place] and here she had an echocardiogram at [facility] where LV ejection fraction was noted to be 55-60% normal range with no wall motion abnormality. She subsequently in 2014 underwent a cardiac catheterization for recurrent chest p ain or abnormal nuclear stress test which had shown no significant obstructive coronary disease but sluggish flow in the medial branch of the LAD. She was transferred to [facility] for cardiac catheterization and EP consultation. She is already on appropriate medical therapy with FIDEL inhibitor, beta-victorina, statin, and aspirin. Time Spent with Patient Time attestation: Total time spent providing and/or coordinating discharge services: 35 Physical Exam Vital Signs: Vital Signs: Last Vital Signs Temp 96.9 F 07/19/20 07:46 Pulse 58 07/19/20 09:29 Resp 20 07/19/20 07:46 BP 153/85 H 07/19/20 09:29 Pulse Ox 100 07/19/20 07:46 Body Mass Index 31.5 Const: Orientation/consciousness: patient oriented x3 Chest: Chest palpation & inspection: normal inspection of the chest Resp: Effort & Inspection: normal respiratory effort Auscultation: clear to auscultation bilaterally Cardio: Rate: regular rate Rhythm: regular rhythm Heart sounds: no murmurs GI: Palpation (GI): Soft to palpation and nontender Neuro: General: patient oriented x3 and no focal motor deficits Extrem: General: Yes no clubbing, cyanosis or edema DS: Data Data Completed and Pending Labs on day of discharge: Laboratory Tests 07/17/20 07/17/20 07/17/20 20:46 20:46 20:46 WBC 9.4 RBC 5.30 Hgb 14.3 Hct 45.9 MCV 86.6 MCH 27.0 MCHC 31.2 RDW 13.4 Plt Count 321 MPV 9.9 Immature Gran % (Auto) 0.4 Neut % (Auto) 71.1 Lymph % (Auto) 19.4 L [place] % (Auto) 6.6 Eos % (Auto) 1.9 Baso % (Auto) 0.6 Lymph # (Auto) 1.8 [place] # (Auto) 0.6 Eos # (Auto) 0.2 Baso # (Auto) 0.1 Abs Immat Gran (auto) 0.04 H Absolute Neuts (auto) 6.7 Absolute Nucleated RBC 0.000 Nucleated RBC % (auto) 0.0 PT 11.0 INR 0.9 APTT 36.1 D-Dimer 214 Sodium Potassium Chloride Carbon Dioxide Anion Gap BUN Creatinine Estim Creat Clear Calc Estimated GFR Random Glucose Calcium Total Bilirubin AST ALT Alkaline Phosphatase Troponin I High Sens < 3.5 B-Natriuretic Peptide 37 Total Protein Albumin Coronavirus (PCR) COVID-19 PCR COVID-19 (HORTENCIA) COVID-19 Clin Com 07/17/20 07/18/20 07/18/20 20:46 00:55 00:55 WBC RBC Hgb Hct MCV MCH MCHC RDW Plt Count MPV Immature Gran % (Auto) Neut % (Auto) Lymph % (Auto) [place] % (Auto) Eos % (Auto) Baso % (Auto) Lymph # (Auto) [place] # (Auto) Eos # (Auto) Baso # (Auto) Abs Immat Gran (auto) Absolute Neuts (auto) Absolute Nucleated RBC Nucleated RBC % (auto) PT INR APTT D-Dimer Sodium 141 Potassium 4.2 Chloride 104 Carbon Dioxide 29 Anion Gap 12 BUN 12 Creatinine 0.81 Estim Creat Clear Calc 73.3 Estimated GFR > 60 Random Glucose 156 H Calcium 9.2 Total Bilirubin 0.3 AST 23 ALT 16 Alkaline Phosphatase 107 Troponin I High Sens B-Natriuretic Peptide Total Protein 8.0 Albumin 4.3 Coronavirus (PCR) COVID-19 PCR Cancelled COVID-19 (HORTENCIA) Cancelled COVID-19 Clin Com Cancelled 07/18/20 07/18/20 07/18/20 05:02 10:05 10:05 WBC 5.6 RBC 5.09 Hgb 13.7 Hct 43.7 MCV 85.9 MCH 26.9 L MCHC 31.4 RDW 13.4 Plt Count 284 MPV 10.1 Immature Gran % (Auto) 0.4 Neut % (Auto) 66.8 Lymph % (Auto) 22.9 [place] % (Auto) 7.3 Eos % (Auto) 2.2 Baso % (Auto) 0.4 Lymph # (Auto) 1.3 [place] # (Auto) 0.4 Eos # (Auto) 0.1 Baso # (Auto) 0.0 Abs Immat Gran (auto) 0.02 Absolute Neuts (auto) 3.7 Absolute Nucleated RBC 0.000 Nucleated RBC % (auto) 0.0 PT INR APTT D-Dimer Sodium 139 Potassium 3.9 Chloride 107 Carbon Dioxide 26 Anion Gap 10 L BUN 10 Creatinine 0.57 Estim Creat Clear Calc 104.1 Estimated GFR > 60 Random Glucose 91 D Calcium 8.7 Total Bilirubin AST ALT Alkaline Phosphatase Troponin I High Sens B-Natriuretic Peptide Total Protein Albumin Coronavirus (PCR) NEGATIVE COVID-19 PCR COVID-19 (HORTENCIA) COVID-19 Clin Com Discharge Plan Discharge Anticipated Discharge Date/Time: 07/19/20 10:31 Patient Disposition: [facility] Referrals: Physician,Unknown [Primary Care Provider] - Discharge Medications: New atorvastatin 40 mg Tablet 40 mg PO DAILY 1 Days Qty: 1 RF: 0 lisinopril 5 mg Tablet 5 mg PO DAILY 1 Days Qty: 1 RF: 0 Continued carvedilol 25 mg Tablet 25 mg PO BID RF: 0 amlodipine 5 mg Tablet 5 mg PO DAILY RF: 0 aspirin 81 mg Tablet 81 mg PO DAILY RF: 0 Discontinued lisinopril 10 mg Tablet 10 mg PO BID RF: 0 atorvastatin 10 mg PO DAILY RF: 0 Discharge Orders: Discharge Order (Routine); Ordered 07/19/20 Ordered By: Karla Abrams Diet: other Activity on Discharge: Rest with bed elevated Patient Instructions: Heart Attack (DC), Heart Catheterization (DC), Decision Aid for Stable Ischemic Heart Disease (GEN) Print Language: Ivorian Care Plan Goals: workup of heart disease Health Concerns: near-syncope -> ischemic cardiomyopathy Plan of Treatment: transfer to [facility] for cardiac catheterization and further workup
--- NOTE | 2020-07-19 11:24 | MHC.CM.PN ---
Per MD rounds DC today ACUTE transfer to [facility] for cardiac catheterization. Patient will be transported via [facility].
== END 2020-07-19 13:35 | disposition short-term general hospital (02) | DRG 198 ==
LOC: HO.ED 07-18 00:50 → HO.IMC 07-18 06:22
PROVIDERS: Physician Assistant; Admitting Provider Internal Medicine; Emergency Provider Emergency Medicine; Visit Provider Family Medicine
DX: I25.5 Ischemic cardiomyopathy (principal); I11.0 Hypertensive heart disease with heart failure; I50.22 Chronic systolic (congestive) heart failure; I25.10 Atherosclerotic heart disease of native coronary artery without angina pectoris; I25.2 Old myocardial infarction; Z20.828 Contact with and (suspected) exposure to other viral communicable diseases; Z79.82 Long term (current) use of aspirin; Z79.899 Other long term (current) drug therapy
CPT/HCPCS: 36415; 71045; 80048; 80053; 83880; 84484; 85025; 85379; 85610; 85730; 87635; 93005; 93306; 99285; J1650; Q9957; U0003